=== PATIENT | male | born 1960 | race African-American/Black ===

== ENCOUNTER 2023-01-10 09:20 | Day surgery (SDC) | payer OTHER ==
[~2023-01-10] VITALS: Ht 172.7 cm; Wt 81.6 kg
[2023-01-10] MEDS ORDERED: fentaNYL citrate 0.05 MG/ML VIAL ONE ×2 (10:41→10:43)
[2023-01-10] MEDS ORDERED: diphenhydrAMINE 50 MG/ML VIAL ONE (10:41)
[2023-01-10] MEDS ORDERED: LIDOCAINE 2% 100 MG/5 ML UJET TP ONE (10:42)
[2023-01-10] MEDS ORDERED: MIDAZOLAM 5 MG/5 ML VIAL ONE (10:42)
[2023-01-10] MEDS ORDERED: diphenhydrAMINE 50 MG/ML VIAL IVP ONE (14:00)
[2023-01-10] MEDS ORDERED: fentaNYL citrate 0.05 MG/ML VIAL IVP ONE (14:00)
[2023-01-10] MEDS ORDERED: MIDAZOLAM 5 MG/5 ML VIAL IV ONE (14:15)
== END 2023-01-10 11:44 | disposition home or self-care (01) ==
LOC: MDS 09:20 → MMU 09:23 → MDS 11:44
PROVIDERS: ATTEND Internal Medicine Gastroenterology
DX: Z12.11 Encounter for screening for malignant neoplasm of colon (principal); K57.30 Diverticulosis of large intestine without perforation or abscess without bleeding; I10 Essential (primary) hypertension; Z88.0 Allergy status to penicillin; Z79.899 Other long term (current) drug therapy; Z98.890 Other specified postprocedural states
CPT/HCPCS: 45378; J1200; J2250; J3010